=== PATIENT | female | born 1980 | race Two or more races ===

== ENCOUNTER → 2023-11-08 11:34 | Outpatient (REF) | payer BC, SELFPAY | LOC: HWWDC 11:34 | PROVIDERS: ATTENDING PHYSICIAN Nurse Practitioner Family; FAMILY PHYSICIAN Internal Medicine | DX: Z12.31 Encounter for screening mammogram for malignant neoplasm of breast (principal) | CPT/HCPCS: 77063; 77067 ==

== ENCOUNTER → 2023-12-26 12:54 | Outpatient (REF) | payer BC, SELFPAY | LOC: HWEVLT 12:54 | PROVIDERS: ATTENDING PHYSICIAN Radiology Diagnostic Radiology | DX: I83.892 Varicose veins of left lower extremity with other complications (principal) | CPT/HCPCS: 93971 ==